=== PATIENT | female | born 2005 | race Two or more races ===

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

== ENCOUNTER 2024-05-13 10:06 | Outpatient (REF) | payer MEDICAID, SELFPAY ==
--- NOTE | ~2024-05-13 | XR_ITS ---
EXAMINATION: XR FOOT, RIGHT CLINICAL INFORMATION: Persistent right foot pain at base of 5th and 4th metatarsals after fall. COMPARISON: None available. TECHNIQUE: AP, lateral, and oblique views of the right foot. FINDINGS: The bones and soft tissues are normal. No fracture. Alignment is anatomic. Joint spaces are maintained. XR/XR foot RT min 3V IMPRESSION: Normal right foot. Electronically signed by: Mary Jane Frye MD 05/13/2024 12:27 PM EDT
== END 2024-05-13 10:07 | disposition home or self-care (01) ==
LOC: HO.HHCX 10:06
PROVIDERS: Visit Provider Registered Nurse
DX: M79.671 Pain in right foot (principal)
CPT/HCPCS: 73630